=== PATIENT | female | born 1985 | race Caucasian/White ===

== ENCOUNTER 2018-03-22 08:23 | Emergency (ER) | payer MEDICAID ==
[2018-03-22 09:16] LABS: URINE PH (Dip) POC 5.5 (5.0-8.5)
[2018-03-22 09:16] LABS: URINE BLOOD (Dip) POC 3+ (NEGATIVE); URINE GLUCOSE (Dip) POC Negative (NEGATIVE); URINE KETONES (Dip) POC Negative (NEGATIVE); URINE LEUKOCYTE EST (Dip) POC Negative (NEGATIVE); URINE NITRITE (Dip) POC Negative (NEGATIVE); URINE TOTAL PROTEIN POC 1+ (NEGATIVE)
== END 2018-03-22 10:09 | disposition home or self-care (01) ==
LOC: FTE 08:23
DX: N94.6 Dysmenorrhea, unspecified (principal)
CPT/HCPCS: 81003; 81025; 99283

== ENCOUNTER 2018-07-21 19:06 | Emergency (ER) | payer MEDICAID ==
[2018-07-21 20:44] LABS: ADD UMIC YES; UR ASCORBIC ACID NEGATIVE (NEGATIVE); UR BACTERIA FEW /HPF (NONE SEEN); UR BILIRUBIN (Dip) NEGATIVE (NEGATIVE); UR BLOOD (Dip) NEGATIVE (NEGATIVE); UR CLARITY CLEAR (CLEAR); UR COLOR YELLOW (YELLOW); UR GLUCOSE (Dip) NEGATIVE (NEGATIVE); UR KETONES (Dip) NEGATIVE (NEGATIVE); UR LEUKOCYTE ESTERASE (Dip) NEGATIVE Leu/ul (NEGATIVE); UR NITRITE (Dip) NEGATIVE (NEGATIVE); UR RBC 1 /HPF (0-5); UR SPECIFIC GRAVITY (Dip) 1.011 (1.003-1.030); UR SQUAMOUS EPITHELIAL CELL FEW /HPF (FEW); UR TOTAL PROTEIN (Dip) 1+ mg/dl (NEGATIVE); UR UROBILINOGEN (Dip) NEGATIVE (NEGATIVE); UR WBC 0 /HPF (0-5)
[2018-07-21] MEDS: ONDANSETRON (ODT) 4 MG TAB ODT (21:31)
[2018-07-21] MEDS: LIDOCAINE/MYLANTA 40 ML BTL PO (21:31)
== END 2018-07-21 21:44 | disposition home or self-care (01) ==
LOC: FTE 21:44
DX: R10.31 Right lower quadrant pain (principal)
CPT/HCPCS: 81001; 81025; 87086; 99283

== ENCOUNTER 2018-10-13 18:42 | Emergency (ER) | payer SELFPAY, MEDICAID | END 2018-10-13 22:45 | disposition left against medical advice (07) | LOC: FTE 18:42 | DX: Z53.21 Procedure and treatment not carried out due to patient leaving prior to being seen by health care provider (principal) ==